=== PATIENT | female | born 1980 | race Caucasian/White ===

== ENCOUNTER 2017-11-03 14:16 | Emergency (ER) | payer OTHER, MEDICAID ==
[2017-11-03 17:09] LABS: ADD MAN DIFF? NO
[2017-11-03 17:18] LABS: WHITE BLOOD COUNT 6.6 10^3/ul (4.8-10.8)
[2017-11-03 17:18] LABS: BASOPHILS % 0.6 % (0.0-2.0); EOSINOPHILS # 0.1 10^3/ul (0.0-0.5); HEMATOCRIT 37.6 % (37.0-47.0); HEMOGLOBIN 13.4 g/dl (12.0-16.0); LYMPHOCYTES # 1.8 10^3/ul (0.8-2.9); LYMPHOCYTES % 26.6 % (15.0-51.0); MEAN CORPUSCULAR HEMOGLOBIN 32.1 pg (29.0-33.0); MEAN CORPUSCULAR HGB CONC 35.6 g/dl (32.0-37.0); MEAN CORPUSCULAR VOLUME 90.2 fl (82.0-101.0); MEAN PLATELET VOLUME 10.5 fl (7.4-10.4); MONOCYTE # 0.4 10^3/ul (0.3-0.9); MONOCYTES % 5.4 % (0.0-11.0); NEUTROPHIL # 4.3 10^3/ul (1.6-7.5); NEUTROPHILS % 65.1 % (39.0-77.0); PLATELET COUNT 207 10^3/UL (140-415); RED BLOOD COUNT 4.17 10^6/ul (4.20-5.40); RED CELL DISTRIBUTION WIDTH 12.2 % (11.5-14.5)
[2017-11-03 18:00] LABS: ADD UMIC YES; UR ASCORBIC ACID NEGATIVE (NEGATIVE); UR BACTERIA FEW /HPF (NONE SEEN); UR BILIRUBIN (Dip) NEGATIVE (NEGATIVE); UR BLOOD (Dip) 2+ mg/dL (NEGATIVE); UR CLARITY SLIGHTLY CLOUDY (CLEAR); UR COLOR STRAW (YELLOW); UR GLUCOSE (Dip) NEGATIVE (NEGATIVE); UR KETONES (Dip) NEGATIVE (NEGATIVE); UR LEUKOCYTE ESTERASE (Dip) NEGATIVE Leu/ul (NEGATIVE); UR NITRITE (Dip) NEGATIVE (NEGATIVE); UR RBC 2 /HPF (0-5); UR SPECIFIC GRAVITY (Dip) 1.005 (1.003-1.030); UR SQUAMOUS EPITHELIAL CELL FEW /HPF (FEW); UR TOTAL PROTEIN (Dip) NEGATIVE (NEGATIVE); UR UROBILINOGEN (Dip) NEGATIVE (NEGATIVE); UR WBC 2 /HPF (0-5)
== END 2017-11-03 18:38 | disposition home or self-care (01) ==
LOC: FTE 18:38
DX: O02.1 Missed abortion (principal); R10.2 Pelvic and perineal pain
CPT/HCPCS: 36415; 76801; 76817; 81001; 81025; 84702; 85025; 86900; 86901; 99284-25

== ENCOUNTER 2017-11-10 10:23 | Day surgery (SDC) | payer OTHER ==
[2017-11-10] MEDS ORDERED: PROPOFOL 20 ML (12:40)
[2017-11-10] MEDS ORDERED: MIDAZOLAM 1 MG/ML 2 ML INJ (12:40)
[2017-11-10] MEDS ORDERED: METOCLOPRAMIDE 10 MG INJ (12:41)
[2017-11-10] MEDS ORDERED: CEFAZOLIN 1 GM INJ (12:41)
[2017-11-10] MEDS ORDERED: KETOROLAC 30 MG INJ (12:41)
[2017-11-10] MEDS ORDERED: ONDANSETRON 4 MG INJ (12:41)
[2017-11-10] MEDS ORDERED: FENTAnyl 50 MCG/ML VIAL (12:57)
[2017-11-10] MEDS ORDERED: OXYTOCIN 10 UNIT INJ (13:06)
[2017-11-10] MEDS ORDERED: EPHEDrine SULFATE 50 MG/5 ML SYG (13:15)
[2017-11-10] MEDS ORDERED: IBUPROFEN 600 MG TAB PO (13:30)
[2017-11-10] MEDS: KETOROLAC 30 MG INJ IV (14:00)
== END 2017-11-10 15:20 | disposition home or self-care (01) ==
LOC: SDS 10:23
DX: O03.4 Incomplete spontaneous abortion without complication (principal)
CPT/HCPCS: 59812; 86900; 86901; 88305

== ENCOUNTER 2017-11-26 21:21 | Inpatient (IN) | payer OTHER ==
[2017-11-26] MEDS: SOD CHLORIDE 0.9% 1,000 ML IV (21:52)
[2017-11-26 21:56] LABS: ADD MAN DIFF? NO
[2017-11-26 21:59] LABS: BASOPHILS % 0.7 % (0.0-2.0); EOSINOPHILS # 0.3 10^3/ul (0.0-0.5); EOSINOPHILS % 4.8 % (0.0-7.0); HEMATOCRIT 38.2 % (37.0-47.0); HEMOGLOBIN 13.2 g/dl (12.0-16.0); LYMPHOCYTES # 2.1 10^3/ul (0.8-2.9); LYMPHOCYTES % 34.9 % (15.0-51.0); MEAN CORPUSCULAR HEMOGLOBIN 32.4 pg (29.0-33.0); MEAN CORPUSCULAR HGB CONC 34.6 g/dl (32.0-37.0); MEAN CORPUSCULAR VOLUME 93.9 fl (82.0-101.0); MEAN PLATELET VOLUME 10.1 fl (7.4-10.4); MONOCYTE # 0.4 10^3/ul (0.3-0.9); MONOCYTES % 5.8 % (0.0-11.0); NEUTROPHIL # 3.2 10^3/ul (1.6-7.5); NEUTROPHILS % 53.6 % (39.0-77.0); PLATELET COUNT 223 10^3/UL (140-415); RED BLOOD COUNT 4.07 10^6/ul (4.20-5.40); RED CELL DISTRIBUTION WIDTH 12.1 % (11.5-14.5)
[2017-11-26 22:20] LABS: INR 0.94; PARTIAL THROMBOPLASTIN TIME 25.8 Sec (25.0-35.0); PROTIME 12.7 Sec (11.9-14.9)
[2017-11-26 22:24] LABS: ANION GAP 14 (8-16); BLOOD UREA NITROGEN 15 mg/dl (7-20); CALCIUM 9.2 mg/dl (8.4-10.2); CARBON DIOXIDE 30 mmol/L (21-31); CHLORIDE 104 mmol/L (97-110); CREATININE 0.64 mg/dl (0.44-1.00); GLUCOSE 133 mg/dl (70-220); POTASSIUM 3.9 mmol/L (3.5-5.1); SODIUM 144 mmol/L (135-144)
[2017-11-26] MEDS: DOXYCYCLINE 100 MG in SOD CHLORIDE 0.9% 250 ML IVPB (23:17)
[2017-11-27] MEDS ORDERED: CEFOTAXIME 2 GM/50 ML (PMX) 50 ML IVPB
[2017-11-27] MEDS: LACTATED RINGER'S 1,000 ML IV ×3 (00:51→17:00)
[2017-11-27] MEDS ORDERED: HYDROCODONE/APAP (7.5/325) TAB PO (01:00)
[2017-11-27] MEDS: CEFTRIAXONE 2 GM/50 ML (PMX) 50 ML IVPB (03:00)
[2017-11-27] MEDS: metroNIDAZOLE 500 MG/NS (PMX) 100 ML IVPB ×3 (05:13→22:21)
[2017-11-27] MEDS: DOXYCYCLINE 100 MG in SOD CHLORIDE 0.9% 250 ML IVPB ×2 (10:46→20:35)
[2017-11-28] MEDS: CEFTRIAXONE 1 GM/50 ML (PMX) 50 ML IVPB (02:13)
[2017-11-28] MEDS: LACTATED RINGER'S 1,000 ML IV ×2 (02:47→09:00)
[2017-11-28] MEDS: metroNIDAZOLE 500 MG/NS (PMX) 100 ML IVPB (05:42)
[2017-11-28] MEDS: DOXYCYCLINE 100 MG in SOD CHLORIDE 0.9% 250 ML IVPB (09:01)
[2017-11-28] MEDS ORDERED: MIDAZOLAM 1 MG/ML 2 ML INJ (11:57)
[2017-11-28] MEDS ORDERED: FENTAnyl 50 MCG/ML VIAL ×2 (11:57→13:19)
[2017-11-28] MEDS ORDERED: CEFAZOLIN 1 GM INJ (12:12)
[2017-11-28] MEDS ORDERED: KETOROLAC 30 MG INJ IV (12:30)
[2017-11-28] MEDS ORDERED: PROPOFOL 20 ML (12:38)
[2017-11-28] MEDS ORDERED: LIDOCAINE 2% (SDV) 5 ML INJ (12:38)
[2017-11-28] MEDS ORDERED: ONDANSETRON 4 MG INJ (12:39)
[2017-11-28] MEDS: morphine 2 MG INJ IV (13:28)
[2017-11-28] MEDS ORDERED: MEPERIDINE 25 MG INJ IV (13:30)
[2017-11-28] MEDS ORDERED: DIPHENHYDRAMINE 50 MG INJ IV (13:30)
[2017-11-28] MEDS ORDERED: HYDROmorphONE (0.2 MG/ML) 10ML SYG IV ×2 (13:30)
[2017-11-28] MEDS ORDERED: METOCLOPRAMIDE 10 MG INJ IV (13:30)
[2017-11-28] MEDS: KETOROLAC 30 MG INJ IV (13:36)
[2017-11-28] MEDS: ONDANSETRON 4 MG INJ IV (13:37)
[2017-11-28] MEDS: FENTAnyl 50 MCG/ML VIAL IV (13:38)
[2017-11-28] MEDS: IBUPROFEN 600 MG TAB PO (15:44)
== END 2017-11-28 15:45 | disposition home or self-care (01) | DRG 745 ==
LOC: PP2 23:18 → E/R 21:21 → PP2 22:31
PROVIDERS: Obstetrics & Gynecology Obstetrics
PROC: 0UDB7ZX Extraction of Endometrium, Via Natural or Artificial Opening, Diagnostic (ICD-10-PCS; principal; 2017-11-28 11:00)
DX: N71.9 Inflammatory disease of uterus, unspecified (principal); N73.2 Unspecified parametritis and pelvic cellulitis
CPT/HCPCS: 36415; 76856; 80048; 84702; 85025; 85610; 85730; 86850; 86900; 86901; 87591; 88305; 96374; 99285-25

== ENCOUNTER 2017-12-05 13:49 | Outpatient (CLI) | payer OTHER | END 2017-12-08 14:08 | disposition home or self-care (01) | LOC: DCC 12-08 14:08 | DX: R10.30 Lower abdominal pain, unspecified (principal) | CPT/HCPCS: G0463 ==